=== PATIENT | male | born 1970 | race Caucasian/White ===

== ENCOUNTER → 2018-04-09 | Outpatient (CLI) | payer OTHER ==
[~2018-04-09] MED LIST: IOPAMIDOL 370 MG/ML 200 ML INFUS..BTL INJ ONE; SODIUM CHLORIDE 0.9% 50ML 50 ML ONE
--- NOTE | 2018-04-09 12:46 | Diagnostic Imaging Report ---
PROCEDURE:CT CHEST WITH CONTRAST COMPARISON:None at this institution. INDICATIONS:ABNORMAL CHEST XRAY TECHNIQUE: Axial CT images of the chest were obtained from the apices through the adrenal glands. Coronal and sagittal reformations were made available for review. 100 cc of non-ionic contrast was administered. RADIATION DOSE: Total DLP: 558.16 mGy*cm Estimated effective dose: (DLP x 0.014 x size factor) mSv FINDINGS: Lungs: Right lung: Minimal apical pleural parenchymal thickening. Subtle area of ground glass attenuation in the apex measures 1.6 x 1.4 cm (image 28). No solid mass. Left lung: Minimal apical pleural parenchymal thickening. No mass or infiltrate. Pleura:Trace posterior pleural bulging. No pleural effusions. Lymph nodes: No enlarged axillary, supraclavicular lymph nodes. Mediastinal lymph nodes measure up to 1.5 cm with fatty wandy. No enlarged subcarinal and hilar lymph nodes. Heart \T\ Mediastinum:No filling defects in the great vessels. No pericardial effusion. There is a small hilar hernia. Thyroid/base of neck: Normal size. Very low attenuating lesion in the right lobe measures 3 mm. 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 The excluded stomach is collapsed. Visualized small bowel is normal in diameter with normal wall thickness. Visualized portion of the large bowel is unremarkable. Visualized portions of the liver, pancreas, spleen, adrenal glands, and kidneys are unremarkable. The gallbladder and biliary tree are normal. Musculoskeletal:Mild degenerative changes of the spine. No lytic or blastic lesions. CONCLUSION: 1. Subtle focus of groundglass attenuation in the apex of the right upper lobe. Recommend 3-4 month follow-up with CT of the chest to confirm stability or to document resolution. 2. Postoperative changes of the bowel as described above. Dictated by: Edward Benoit M.D. on 04/09/2018 at 12:52 Electronically approved by: Edward Benoit M.D. on 04/09/2018 at 12:52
== END ==
LOC: CT 08:38
PROVIDERS: ATTEND Family Medicine
DX: R93.8 Abnormal findings on diagnostic imaging of other specified body structures (principal)
CPT/HCPCS: 71260; Q9967

== ENCOUNTER → 2024-06-11 | Day surgery (SDC) | payer BC, OTHER ==
[~2024-06-11] MED LIST changes: +GLUCAGON FOR INJ 1 MG VIAL ONE; -IOPAMIDOL 370 MG/ML 200 ML INFUS..BTL INJ ONE; +LIDOCAINE HCL 2% LOCAL INJ 5 ML SDV VIAL INJ ONE; +METOCLOPRAMIDE HCL 10 MG/2ML VIAL ONE; +PROPOFOL IV EMULSION 10 MG/ML 20 ML VIAL ONE; -SODIUM CHLORIDE 0.9% 50ML 50 ML ONE
[2024-06-11] MEDS: LACTATED RINGER'S 1,000 ML ONE (13:20)
[2024-06-11 15:30] VITALS: TEMP 97.2
[2024-06-11 15:55] VITALS: BP 124/90; PULSE 86; RESP 18; O2SAT 99
== END | disposition home or self-care (01) ==
LOC: OR 13:08
PROVIDERS: ATTEND Internal Medicine Gastroenterology
DX: Z12.11 Encounter for screening for malignant neoplasm of colon (principal); K62.1 Rectal polyp; K62.89 Other specified diseases of anus and rectum; K57.30 Diverticulosis of large intestine without perforation or abscess without bleeding; K64.8 Other hemorrhoids; Z71.3 Dietary counseling and surveillance; E66.9 Obesity, unspecified; Z01.810 Encounter for preprocedural cardiovascular examination; Z68.38 Body mass index [BMI] 38.0-38.9, adult
CPT/HCPCS: 45385; 93005; J1610; J2001; J2704; J2765; J7121; 45378; J2003